=== PATIENT | male | born 1995 | race Caucasian/White ===

== ENCOUNTER 2024-04-14 15:21 | Inpatient (IN) | payer MEDICAID, OTHER ==
[~2024-04-14] VITALS: Ht 172.7 cm; Wt 89.1 kg
[~2024-04-14 15:21] MED LIST: LURA20TA2 PO; LURA80TA4 PO; OLAN5TAB52 PO; TRAZ-257 PO
[2024-04-14] MEDS: OLANZapine 10 MG TABLET PO ONE (16:22)
[2024-04-14] MEDS: LORazepam 2 MG TABLET PO ONE (16:22)
[2024-04-14 16:25] LABS: BASOPHILS % (AUTO) 0.3 % (0.0-2.0); EOSINOPHILS % (AUTO) 5.9 % (1.0-6.0); HEMATOCRIT 43.9 % (41-53); HEMOGLOBIN 14.7 g/dL (13.5-17.5); LYMPHOCYTES % (AUTO) 41.6 % (22.0-44.0); MEAN CORPUSCULAR HEMOGLOBIN 30.4 pg (26.0-34.0); MEAN CORPUSCULAR HGB CONC 33.6 G/dL (31.0-37.0); MEAN CORPUSCULAR VOLUME 91 fL (80-100); MONOCYTES # (AUTO) 0.4 K/uL (0.1-1.0); MONOCYTES % (AUTO) 8.7 % (2.0-9.0); NEUTROPHILS # (AUTO) 2.1 K/uL (1.8-7.7); NEUTROPHILS % (AUTO) 43.5 % (40.0-70.0); PLATELET COUNT (AUTO) 292 K/uL (150-450); RED BLOOD CELL COUNT(AUTO) 4.84 MIL/uL (4.50-5.90); RED CELL DISTRIBUTION WIDTH 13.3 % (11.5-14.5); WHITE BLOOD COUNT (AUTO) 4.7 K/uL (4.5-11.0)
[2024-04-14 16:36] LABS: ANION GAP 10 mmol/L (8-16); CALCIUM, TOTAL 8.7 mg/dL (8.8-10.5); CARBON DIOXIDE 25 mmol/L (22-29); CHLORIDE 105 mmol/L (98-107); CREATININE 0.98 mg/dL (0.60-1.30); GLOMERULAR FILTR. RATE CALC > 60 mL/min (>60); GLUCOSE,RANDOM 101 mg/dL (70-110); POTASSIUM 3.9 mmol/L (3.5-5.1); SODIUM SERUM 140 mmol/L (136-145); UREA NITROGEN, BLOOD 14 mg/dL (7-18)
[2024-04-14 16:41] LABS: ALCOHOL, URINE DRUG SCREEN NEGATIVE (NEGATIVE); AMPHET/METH SCREEN,URINE POSITIVE (NEGATIVE); BARBITURATE SCREEN, URINE NEGATIVE (NEGATIVE); BENZODIAZEPINES SCREEN,URINE NEGATIVE (NEGATIVE); CANNABINOID SCREEN,URINE NEGATIVE (NEGATIVE); COCAINE SCREEN,URINE NEGATIVE (NEGATIVE); METHADONE SCREEN, URINE NEGATIVE (NEGATIVE); OPIATE SCREEN,URINE NEGATIVE (NEGATIVE); PHENCYCLIDINE SCREEN,URINE NEGATIVE (NEGATIVE)
[2024-04-14 16:42] LABS: ALCOHOL, BLOOD (SERUM) < 3 mg/dL (0-10)
[2024-04-14 23:30] VITALS: BP 130/69; PULSE 75; RESP 18; TEMP 97.9; O2SAT 97
[2024-04-15 06:15] VITALS: BP 119/82; PULSE 69; RESP 18; TEMP 98.2; O2SAT 98
[2024-04-15 10:18] VITALS: BP 125/74; PULSE 83; RESP 17; TEMP 98.2; O2SAT 97
[2024-04-15] MEDS: OLANZapine 5 MG TABLET PO SCH (20:41)
[2024-04-15] MEDS: TraZODone HCL 100 MG TABLET PO SCH (20:41)
[2024-04-15 20:50] VITALS: BP 133/81; PULSE 83; RESP 18; TEMP 98.4; O2SAT 99
[2024-04-16 06:02] VITALS: BP 126/77; PULSE 70; RESP 18; TEMP 97.7; O2SAT 99
[2024-04-16] MEDS: LURASIDONE HCL 80 MG TABLET PO SCH (09:08)
[2024-04-16 09:40] VITALS: BP 125/76; PULSE 94; RESP 20; TEMP 98.5; O2SAT 98
[2024-04-16] MEDS ORDERED: LURA80TA2 PO (11:52)
[2024-04-16] MEDS ORDERED: OLAN5TAB52 PO (11:53)
[2024-04-16] MEDS ORDERED: TRAZ-257 PO (11:53)
== END 2024-04-16 16:43 | DRG 885 ==
LOC: EMS 15:21 → EDH 19:02 → UNDOADMIN 19:02 → 6S 23:22
PROVIDERS: ADMIT Internal Medicine; ATTEND Internal Medicine
PROC: GZ56ZZZ Individual Psychotherapy, Supportive (ICD-10-PCS; principal; 2024-04-15)
DX: F20.0 Paranoid schizophrenia (principal); E66.3 Overweight; F15.10 Other stimulant abuse, uncomplicated; F31.9 Bipolar disorder, unspecified; I10 Essential (primary) hypertension; F41.9 Anxiety disorder, unspecified; Z68.29 Body mass index [BMI] 29.0-29.9, adult
CPT/HCPCS: 80048; 80307; 85025; 99285; G0480